=== PATIENT | female | born 1995 ===

== ENCOUNTER 2023-01-10 06:57 | Emergency (ER) | payer BC ==
[2023-01-10] MEDS ORDERED: LORazepam 1 MG Tab PO ONE (08:45)
== END 2023-01-10 09:20 | disposition home or self-care (01) ==
LOC: JD.ED 06:57
DX: F41.9 Anxiety disorder, unspecified (principal); Z91.012 Allergy to eggs; Z91.013 Allergy to seafood; F17.210 Nicotine dependence, cigarettes, uncomplicated
CPT/HCPCS: 99283; A9270; 99282